=== PATIENT | female | born 1990 | race African-American/Black ===

== ENCOUNTER 2018-12-18 08:41 | Day surgery (SDC) | payer OTHER ==
[~2018-12-18] VITALS: Ht 157.5 cm; Wt 68.0 kg
[2018-12-18] VITALS (11 sets, daily range): BP systolic 108–156; BP diastolic 58–98
[~2018-12-18 08:41] MED LIST: ALBUTEROL SULF8.5 GM INH; ceFAZolin 1gm IVPB IVPB ONE; celeBREX 200mg Cap **SURGERY PATIENTS ONLY ORAL ONE; oxyCONTIN 20mg tab ORAL ONE
[2018-12-18] MEDS ORDERED: celeBREX 200mg Cap **SURGERY PATIENTS ONLY ORAL ONE (09:48)
[2018-12-18] MEDS ORDERED: oxyCONTIN 20mg tab ORAL ONE (09:48)
--- NOTE | 2018-12-18 09:53 | Operative Note - PDOC ---
Operative Note Operative Note Pre-op Diagnosis: left knee internal deragment Procedure: seee op report Post-op Diagnosis: same as pre-op plus Operative Findings: consistent w/pre-op dx studies Anesthesia: general Specimen: none Complications: none Condition: stable Estimated Blood Loss: none Implant(s) used?: No Michael Fermin MD Dec 18, 2018 09:53
--- NOTE | 2018-12-18 09:53 | Pre-Procedure Note/Attestation ---
Pre-Procedure Note/Attestation Complete Prior to Procedure Planned Procedure: left Procedure Narrative: knee diagnostic arthroscopy, possible menisectomy, possible synovectomy Indications for Procedure Pre-Operative Diagnosis: left knee internal deragment Attestation I attest that I discussed the nature of the procedure; its benefits; risks and complications; and alternatives (and the risks and benefits of such alternatives ), prior to the procedure, with the patient (or the patient's legal guest service representative). I attest that, if there was a reasonable possibility of needing a blood transfusion, the patient (or the patient's legal guest service representative) was given the [facility] standardized written summary, pursuant to the [place] Blood Safety Act ([place] Health and Safety Code # 1645, as amended). I attest that I re-evaluated the patient just prior to the surgery and that there has been no change in the patient's H&P, except as documented below: Michael Fermin MD Dec 18, 2018 09:52
[2018-12-18] MEDS ORDERED: Tylenol #3 tab (300mg/30mg) ORAL PRN (10:00)
[2018-12-18] MEDS ORDERED: HYDROcodone/Acetamin 5/325 tab ORAL PRN (10:00)
[2018-12-18] MEDS ORDERED: HYDROmorphone 1mg/ml Carpuject SUBQ PRN (10:00)
[2018-12-18] MEDS ORDERED: D5 1/2NS 1,000 ML IV SCH (10:00)
[2018-12-18] MEDS ORDERED: LR 1000ml 1,000 ML IVLG SCH (10:13)
--- NOTE | 2018-12-18 10:13 | Anethesia Preoperative Eval ---
Anesthesia Pre-op PMH/ROS General Date of Evaluation: Dec 18, 2018 Anesthesiologist: Yuriy ASA Score: ASA 2 Mallampati Score Class I : Soft palate, uvula, fauces, pillars visible Class II: Soft palate, uvula, fauces visible Class III: Soft palate, base of uvula visible Class IV: Only hard plate visible Mallampati Classification: Class II Surgeon: Zander Diagnosis: Left knee internal derangement Surgical Procedure: Left knee arthroscopy Anesthesia History: none Family History: no anesthesia problems Allergies: Coded Allergies: No Known Allergies (Unverified , 12/18/18) Medications: see eMAR Patient NPO?: Yes NPO Date: Dec 17, 2018 NPO Time: 22:00 Past Medical History Cardiovascular: Denies: HTN, CAD, [place], valve dz, arrhythmia, other Pulmonary: Reports: asthma; Denies: COPD, GIL, other Gastrointestinal/Genitourinary: Denies: GERD, CRI, ESRD, other Neurologic/Psychiatric: Reports: depression/anxiety, other - bipolar; Denies: dementia, CVA, TIA Endocrine: Denies: DM, hypothyroidism, steroids, other HEENT: Denies: cataract (L), cataract (R), glaucoma, MILLE LACS (L), MILLE LACS (R), other Hematology/Immune: Denies: anemia, DVT, bleeding disorder, other Musculoskeletal/Integumentary: Denies: OA, RA, DJD, DDD, edema, other PSxH Narrative: c/s Anesthesia Pre-op Phys. Exam Physician Exam Last Vital Signs Date Time Temp Pulse Resp B/P (MAP) Pulse Ox O2 Delivery O2 Flow Rate FiO2 12/18/18 09:41 Room Air 12/18/18 09:28 97.9 60 18 125/58 100 Constitutional: NAD Cardiovascular: RRR Respiratory: CTA Airway Exam Mallampati Score: Class II MO: full ROM: full Teeth: intact Anesthesia Pre-op A/P Labs see chart Urine Test Test 12/18/18 09:00 Urine HCG, Qualitative Negative (NEGATIVE) Risk Assessment & Plan Assessment: ASA II Plan: GA Status Change Before Surgery: No Pre-Antibiotics Drug: Ancef 1g Given Within 1 Hr of Incision: Yes Keli Farley MD Dec 18, 2018 10:13
[2018-12-18] MEDS ORDERED: fentaNYL 100 mcg/2 mL IV PRN (10:15)
[2018-12-18] MEDS ORDERED: LORazepam Inj 2mg/ml 1ml IV PRN (10:15)
[2018-12-18] MEDS ORDERED: Hydromorphone 0.5mg/0.5ml inj IVP PRN (10:15)
[2018-12-18] MEDS ORDERED: Midazolam 2mg/2ml Inj IVP PRN (10:15)
[2018-12-18] MEDS ORDERED: Metoclopramide 10mg/2ml Inj IVP PRN ×2 (10:15→10:45)
[2018-12-18] MEDS ORDERED: DiphenhydrAMINE 50mg/ml Inj IVP PRN (10:15)
[2018-12-18] MEDS ORDERED: Albuterol 90mcg Inhaler 8gm INH ONE (10:42)
[2018-12-18] MEDS ORDERED: Lidocaine 1% MPF 10mg/ml 5ml ONE (10:51)
[2018-12-18] MEDS ORDERED: Midazolam 2mg/2ml Inj ONE (10:51)
[2018-12-18] MEDS ORDERED: fentaNYL 100 mcg/2 mL IV ONE (10:51)
[2018-12-18] MEDS ORDERED: Propofol 200mg/20ml IV ONE (10:51)
[2018-12-18] MEDS ORDERED: Kenalog-40 1ml Vial ONE (10:56)
[2018-12-18] MEDS ORDERED: Ketorolac 30mg Inj ONE (10:56)
[2018-12-18] MEDS ORDERED: Duramorph PF 5mg/10ml amp ONE (10:56)
[2018-12-18] MEDS ORDERED: Bupivacaine 0.25% Inj 30ml INJ ONE (10:57)
[2018-12-18] MEDS ORDERED: Bupivacaine w/Epi 0.5% 30ml Vial INJ ONE (10:57)
[2018-12-18] MEDS ORDERED: Lidocaine 1% 10mg/ml/Epi 0.005mg/ml 30ml vial INJ ONE (10:57)
[2018-12-18] MEDS ORDERED: LR 1000ml ONE (11:00)
[2018-12-18] MEDS ORDERED: Dexamethasone 4mg/ml vial ONE (11:10)
[2018-12-18] MEDS ORDERED: NS Irrig 4000ml IRRIG ONE (11:54)
--- NOTE | 2018-12-18 11:54 | 48 Hour Post Anesthesia Eval ---
Post Anesthesia Evaluation Procedure: Left knee arthroscopy Date of Evaluation: Dec 18, 2018 Airway: patent Nausea: No Vomiting: No Pain Intensity: 0 Hydration Status: adequate Cardiopulmonary Status: at baseline Mental Status/LOC: patient returned to baseline Post-Anesthesia Complications: 0 Follow-up care needed: ready to discharge Keli Farley MD Dec 18, 2018 11:54
--- NOTE | 2018-12-18 11:54 | Immediate Post-Op Evaluation ---
Immediate Post-Op Evalulation Immediate Post-Op Evalulation Procedure: Left knee arthroscopy Date of Evaluation: Dec 18, 2018 Time of Evaluation: 11:54 IV Fluids: 500 Blood Products: 0 Estimated Blood Loss: min Urinary Output: 0 Blood Pressure Systolic: 125 Blood Pressure Diastolic: 75 Pulse Rate: 86 Respiratory Rate: 16 O2 Sat by Pulse Oximetry: 99 Temperature (Fahrenheit): 97.2 Pain Score (1-10): 0 Nausea: No Vomiting: No Complications 0 Patient Status: awake, reacts, patent, none Hydration Status: adequate Drug: Ancef 1g Given Within 1 Hr of Incision: Yes Keli Farley MD Dec 18, 2018 11:54
--- NOTE | 2018-12-18 20:00 | Operative Note - Dictated ---
DATE OF OPERATION: 12/18/2018 PREOPERATIVE DIAGNOSES: 1. Left knee medial meniscus tear. 2. Left knee ACL sprain. POSTOPERATIVE DIAGNOSES: 1. Left knee intrameniscal degeneration, medial meniscus. 2. Hypertrophic synovial tissue, medial and lateral patellofemoral compartment. 3. Sprain ACL. PROCEDURES: 1. Left knee diagnostic arthroscopy. 2. Synovectomy lateral and patellofemoral compartment. SURGEON: Michael Fermin M.D. ANESTHESIA: MAC. INDICATION FOR PROCEDURE: The patient is a pleasant female who has had progressive left knee pain. She had an MRI which showed sprain of the ACL and possible medial meniscus tear. She has failed conservative treatment, elected to undergo left knee diagnostic arthroscopy and possible medial meniscectomy. Risks, limitations, expectations, and complications of the procedure were discussed in detail. All questions were addressed. DESCRIPTION OF PROCEDURE: After informed consent was obtained, the patient was brought to the operating room. The patient was placed under anesthesia. Inferolateral stab incision was then made. Trocar was introduced into the knee joint. There was hypertrophic synovial tissue in patellofemoral compartment. Medial compartment was entered. There was hypertrophic synovial tissue in the anterior portion of the medial compartment extending into intercondylar notch and lateral compartment. Medial working portal was established. Synovectomy, medial compartment, intercondylar notch, and lateral compartment was performed. Medial compartment was entered. The area of concern about the posterior horn of the medial meniscus was probed, grossly intact consistent with intrameniscal degeneration. ACL was probed, noted to be intact. Lateral compartment was entered, free of meniscal chondral damage. . The camera was repositioned in the patellofemoral compartment. The synovectomy and excision of fat pad was completed. Instruments were removed. Portal sites were closed using 3-0 Monocryl sutures. Steri-Strips and a sterile dressing were applied. The patient awoken and taken to recovery room with stable vital signs. ESTIMATED BLOOD LOSS: None. COMPLICATIONS: None. SPECIMENS: None. IMPLANTS: None. Michael Fermin M.D. DR: Anson JOB#: [id number] CC:
== END 2018-12-18 11:25 | disposition home or self-care (01) ==
LOC: SUR 08:41
DX: M67.262 Synovial hypertrophy, not elsewhere classified, left lower leg (principal); M23.304 Other meniscus derangements, unspecified medial meniscus, left knee; S83.512A Sprain of anterior cruciate ligament of left knee, initial encounter; X58.XXXA Exposure to other specified factors, initial encounter; Y92.9 Unspecified place or not applicable; F32.9 Major depressive disorder, single episode, unspecified; F41.9 Anxiety disorder, unspecified; F31.9 Bipolar disorder, unspecified
CPT/HCPCS: 29876; 81025; J0690; J1100; J1885; J2250; J2405; J2704; J3010; J3301; J3490; 94003; 94150